=== PATIENT | female | born 1985 | race Two or more races ===

== ENCOUNTER 2022-07-13 11:47 | Emergency (ER) | payer OTHER ==
[~2022-07-13] VITALS: Ht 162.6 cm; Wt 113.4 kg
[2022-07-13] MEDS ORDERED: LEXAPRO5 MG PO (12:19)
== END 2022-07-13 15:21 | disposition home or self-care (01) ==
LOC: ER 11:47
DX: S29.9XXA Unspecified injury of thorax, initial encounter (principal); W05.1XXA Fall from non-moving nonmotorized scooter, initial encounter; Y93.9 Activity, unspecified; Y92.9 Unspecified place or not applicable; Y99.9 Unspecified external cause status; M25.521 Pain in right elbow; M25.561 Pain in right knee